=== PATIENT | male | born 1995 | race Caucasian/White ===

== ENCOUNTER 2020-10-18 10:54 | Outpatient (REF) | payer OTHER, SELFPAY ==
[2020-10-18 11:05] LABS: MANUAL DIFF FLAG NO
[2020-10-18 12:07] LABS: Basophils Percent Auto 0.5 % (0-2); Eosinophils Absolute Auto 0.2 X10*3/uL (0.0-0.4); Eosinophils Percent Auto 2.4 % (0-4); Hematocrit 45.1 % (42-52); Hemoglobin 15.1 g/dl (14.0-18.0); Imm Gran Abs Auto 0.04 X10*3/uL (0.00-0.03); Imm Gran Pct Auto 0.5 % (0.0-0.4); Lymphocytes Absolute Auto 2.1 X10*3/uL (1.2-4.9); Lymphocytes Percent Auto 27.2 % (20-40); Mean Corpuscular HGB Conc 33.5 g/dl (31.0-36.0); Mean Corpuscular Hemoglobin 27.6 pg (27.0-33.0); Mean Corpuscular Volume 82.3 fL (80-98); Mean Platelet Volume 10.7 fL (9.4-12.4); Monocytes Absolute Auto 0.5 X10*3/uL (0.1-1.2); Neutrophils Absolute Auto 4.9 X10*3/uL (2.0-8.3); Neutrophils Percent Auto 63.4 % (45-73); Platelet Count 271 X10*3/uL (160-400); Red Blood Count 5.48 X10*6/uL (4.60-5.80); Red Cell Distribution Width 12.7 % (11.0-16.0); White Blood Count 7.8 X10*3/uL (4.8-10.8)
[2020-10-18 12:16] LABS: Alanine Aminotransferase 38 U/L (0-40); Albumin Level 4.7 g/dL (3.5-5.0); Alkaline Phosphatase 92 U/L (39-117); Anion Gap 11 (12-20); Aspartate Amino Transferase 21 U/L (5-37); Bilirubin Total 0.7 mg/dL (0.0-1.0); Blood Urea Nitrogen 13 mg/dL (9-16); Calcium 9.8 mg/dL (8.4-10.2); Carbon Dioxide 29 mmol/L (22-29); Chloride 105 mmol/L (96-108); Cholesterol 163 mg/dL; Estimated Glomerular Filt Rate > 60; Glucose Fasting 104 mg/dL (60-99); HDL Cholesterol 35 mg/dL; LDL Cholesterol Calculated 112 mg/dl; Sodium 141 mmol/L (135-145); Total Protein 7.1 g/dL (6.5-8.0); Triglycerides 84 mg/dL
[2020-10-18 14:16] LABS: Glucose Urine UA NEG (NEG); Leukocyte Esterase Urine NEG (NEG); Nitrite Urine NEG (NEG); PH 5.5 (5.0-8.0); Specific Gravity - Urine >= 1.030 (1.005-1.025); Urine Blood NEG (NEG); Urine Ketones NEG (NEG); Urine Protein NEG (NEG-TRACE)
[2020-10-18 14:19] LABS: Appearance Urine HAZY; Color Urine YELLOW
== END 2020-10-18 10:55 | disposition home or self-care (01) ==
LOC: HO.LNP 10:54
PROVIDERS: Visit Provider Internal Medicine
DX: Z00.00 Encounter for general adult medical examination without abnormal findings (principal); R79.89 Other specified abnormal findings of blood chemistry
CPT/HCPCS: 80053; 80061; 81003; 85025

== ENCOUNTER 2022-01-04 10:53 | Outpatient (REF) | payer BC, SELFPAY ==
[2022-01-04 10:59] LABS: MANUAL DIFF FLAG NO
[2022-01-04 11:18] LABS: Basophils Percent Auto 0.3 % (0-2); Eosinophils Absolute Auto 0.3 X10*3/uL (0.0-0.4); Eosinophils Percent Auto 2.4 % (0-4); Hematocrit 46.9 % (42.0-52.0); Hemoglobin 15.3 g/dl (14.0-18.0); Imm Gran Abs Auto 0.08 X10*3/uL (0.00-0.03); Imm Gran Pct Auto 0.7 % (0.0-0.4); Lymphocytes Absolute Auto 3.8 X10*3/uL (1.2-4.9); Lymphocytes Percent Auto 32.3 % (20-40); Mean Corpuscular HGB Conc 32.6 g/dl (31.0-36.0); Mean Corpuscular Hemoglobin 27.3 pg (27.0-33.0); Mean Corpuscular Volume 83.6 fL (80.0-98.0); Mean Platelet Volume 10.6 fL (9.4-12.4); Monocytes Absolute Auto 0.8 X10*3/uL (0.1-1.2); Monocytes Percent Auto 6.5 % (2-11); Neutrophils Absolute Auto 6.8 x10*3/uL (2.0-8.3); Neutrophils Percent Auto 57.8 % (45-73); Platelet Count 298 X10*3/uL (160-400); Red Blood Count 5.61 X10*6/uL (4.60-5.80); Red Cell Distribution Width 13.4 % (11.0-16.0); White Blood Count 11.8 X10*3/uL (4.8-10.8)
[2022-01-04 11:26] LABS: Alanine Aminotransferase 71 U/L (0-40); Albumin Level 4.5 g/dL (3.5-5.0); Alkaline Phosphatase 89 U/L (39-117); Anion Gap 13 (12-20); Aspartate Amino Transferase 32 U/L (5-37); Bilirubin Total 0.7 mg/dL (0.0-1.0); Blood Urea Nitrogen 14 mg/dL (9-16); Calcium 9.6 mg/dL (8.4-10.2); Carbon Dioxide 27 mmol/L (22-29); Chloride 102 mmol/L (96-108); Cholesterol 170 mg/dL; Estimated Glomerular Filt Rate > 60; Glucose Fasting 95 mg/dL (60-99); HDL Cholesterol 30 mg/dL; LDL Cholesterol Calculated 106 mg/dl; Potassium 4.3 mmol/L (3.3-5.1); Sodium 138 mmol/L (135-145); Total Protein 7.2 g/dL (6.5-8.0); Triglycerides 171 mg/dL
[2022-01-04 11:50] LABS: Appearance Urine HAZY; Color Urine YELLOW; Glucose Urine UA NEG (NEG); Leukocyte Esterase Urine NEG (NEG); Nitrite Urine NEG (NEG); PH 5.5 (5.0-8.0); Specific Gravity - Urine >= 1.030 (1.005-1.025); Urine Blood NEG (NEG); Urine Ketones NEG (NEG); Urine Protein NEG (NEG-TRACE)
== END 2022-01-04 10:54 | disposition home or self-care (01) ==
LOC: HO.LNP 10:53
PROVIDERS: Visit Provider Internal Medicine
DX: Z00.00 Encounter for general adult medical examination without abnormal findings (principal); E78.6 Lipoprotein deficiency; R79.89 Other specified abnormal findings of blood chemistry
CPT/HCPCS: 80053; 80061; 81003; 85025

== ENCOUNTER 2023-02-25 11:15 | Outpatient (REF) | payer BC, SELFPAY ==
[2023-02-25 11:20] LABS: MANUAL DIFF FLAG NO
[2023-02-25 11:46] LABS: Basophils Absolute Auto 0.1 X10*3/uL (0.0-0.2); Basophils Percent Auto 0.6 % (0-2); Eosinophils Absolute Auto 0.3 X10*3/uL (0.0-0.4); Eosinophils Percent Auto 3.3 % (0-4); Hematocrit 44.6 % (42.0-52.0); Imm Gran Abs Auto 0.05 X10*3/uL (0.00-0.03); Imm Gran Pct Auto 0.6 % (0.0-0.4); Lymphocytes Absolute Auto 3.5 X10*3/uL (1.2-4.9); Lymphocytes Percent Auto 39.4 % (20-40); Mean Corpuscular HGB Conc 33.6 g/dl (31.0-36.0); Mean Corpuscular Hemoglobin 28.5 pg (27.0-33.0); Mean Corpuscular Volume 84.8 fL (80.0-98.0); Mean Platelet Volume 10.5 fL (9.4-12.4); Monocytes Absolute Auto 0.5 X10*3/uL (0.1-1.2); Monocytes Percent Auto 5.9 % (2-11); Neutrophils Absolute Auto 4.4 x10*3/uL (2.0-8.3); Neutrophils Percent Auto 50.2 % (45-73); Platelet Count 246 X10*3/uL (160-400); Red Blood Count 5.26 X10*6/uL (4.60-5.80); Red Cell Distribution Width 13.1 % (11.0-16.0); White Blood Count 8.8 X10*3/uL (4.8-10.8)
[2023-02-25 11:51] LABS: Alanine Aminotransferase 94 U/L (0-40); Albumin Level 4.2 g/dL (3.5-5.0); Alkaline Phosphatase 94 U/L (39-117); Anion Gap 11 (12-20); Aspartate Amino Transferase 67 U/L (5-37); Bilirubin Total 0.5 mg/dL (0.0-1.0); Blood Urea Nitrogen 10 mg/dL (9-16); Calcium 9.1 mg/dL (8.4-10.2); Carbon Dioxide 26 mmol/L (22-29); Chloride 106 mmol/L (96-108); Cholesterol 180 mg/dL; Estimated Glomerular Filt Rate > 60; Glucose Fasting 137 mg/dL (60-99); HDL Cholesterol 35 mg/dL; LDL Cholesterol Calculated 109 mg/dl; Potassium 4.1 mmol/L (3.3-5.1); Sodium 139 mmol/L (135-145); Total Protein 6.8 g/dL (6.5-8.0); Triglycerides 184 mg/dL
[2023-02-25 11:52] LABS: Appearance Urine Clear; Color Urine Yellow; Glucose Urine UA Negative (Negative); Leukocyte Esterase Urine Negative (Negative); Nitrite Urine Negative (Negative); PH 6.5 (5.0-9.0); Specific Gravity - Urine 1.025 (1.005-1.025); Urine Blood Negative (Negative); Urine Ketones Negative (Negative); Urine Protein Negative (Neg-Trace)
[2023-02-25 12:04] LABS: Bacteria Urine None Seen (None Seen); Hyaline Casts Urine 0-2 /LPF (0-2); RBC Urine 0-2 /HPF (0-2); Squamous Epithelial Cell Urine 0-2 /HPF (0-2); WBC Urine 0-5 /HPF (0-5)
[2023-02-25 12:16] LABS: PSA,Total (Free>4and<10) 0.29 ng/mL (0.00-4.00)
== END 2023-02-25 11:16 | disposition home or self-care (01) ==
LOC: HO.LNP 11:15
PROVIDERS: Visit Provider Internal Medicine
DX: Z00.00 Encounter for general adult medical examination without abnormal findings (principal); R79.89 Other specified abnormal findings of blood chemistry; E78.6 Lipoprotein deficiency; Z12.5 Encounter for screening for malignant neoplasm of prostate
CPT/HCPCS: 80053; 80061; 81001; 84153; 85025

== ENCOUNTER 2024-09-08 08:00 | Outpatient (REF) | payer BC, SELFPAY ==
[2024-09-08 10:31] LABS: MANUAL DIFF FLAG NO
[2024-09-08 10:46] LABS: Appearance Urine Clear; Color Urine Dark Yellow; Glucose Urine UA Negative (Negative); Leukocyte Esterase Urine Negative (Negative); Nitrite Urine Negative (Negative); PH 6.5 (5.0-9.0); Specific Gravity - Urine >= 1.030 (1.005-1.025); Urine Blood Negative (Negative); Urine Ketones Negative (Negative); Urine Protein Negative (Neg-Trace)
[2024-09-08 10:55] LABS: Basophils Absolute Auto 0.1 X10*3/uL (0.0-0.2); Basophils Percent Auto 0.5 % (0-2); Eosinophils Absolute Auto 0.2 X10*3/uL (0.0-0.4); Eosinophils Percent Auto 1.7 % (0-4); Hematocrit 45.7 % (42.0-52.0); Hemoglobin 15.6 g/dl (14.0-18.0); Imm Gran Abs Auto 0.04 X10*3/uL (0.00-0.03); Imm Gran Pct Auto 0.4 % (0.0-0.4); Lymphocytes Absolute Auto 3.4 X10*3/uL (1.2-4.9); Lymphocytes Percent Auto 30.7 % (20-40); Mean Corpuscular HGB Conc 34.1 g/dl (31.0-36.0); Mean Corpuscular Hemoglobin 28.9 pg (27.0-33.0); Mean Corpuscular Volume 84.8 fL (80.0-98.0); Mean Platelet Volume 10.8 fL (9.4-12.4); Monocytes Absolute Auto 0.8 X10*3/uL (0.1-1.2); Monocytes Percent Auto 7.1 % (2-11); Neutrophils Absolute Auto 6.5 x10*3/uL (2.0-8.3); Neutrophils Percent Auto 59.6 % (45-73); Platelet Count 266 X10*3/uL (160-400); Red Blood Count 5.39 X10*6/uL (4.60-5.80); Red Cell Distribution Width 12.7 % (11.0-16.0)
[2024-09-08 11:13] LABS: Alanine Aminotransferase 83 U/L (0-40); Albumin Level 4.4 g/dL (3.5-5.0); Alkaline Phosphatase 109 U/L (39-117); Anion Gap 22 (12-20); Aspartate Amino Transferase 38 U/L (5-37); Bilirubin Direct < 0.1 mg/dL (0.0-0.5); Bilirubin Total 0.3 mg/dL (0.0-1.0); Blood Urea Nitrogen 10 mg/dL (9-16); Calcium 9.4 mg/dL (8.4-10.2); Carbon Dioxide 22 mmol/L (22-29); Chloride 100 mmol/L (96-108); Cholesterol 192 mg/dL (<200); Estimated Glomerular Filt Rate > 60; Glucose Fasting 145 mg/dL (60-99); HDL Cholesterol 25 mg/dL (>40); Potassium 3.9 mmol/L (3.3-5.1); Sodium 140 mmol/L (135-145); Triglycerides 896 mg/dL (<150)
== END 2024-09-08 08:01 | disposition home or self-care (01) ==
LOC: HO.LNP 08:00
PROVIDERS: Visit Provider Internal Medicine
DX: Z00.00 Encounter for general adult medical examination without abnormal findings (principal); E78.5 Hyperlipidemia, unspecified; R79.89 Other specified abnormal findings of blood chemistry
CPT/HCPCS: 80053; 80061; 80076; 81003; 82248; 85025

== ENCOUNTER 2024-11-09 14:05 | Outpatient (REF) | payer OTHER, SELFPAY ==
--- OUTSIDE RECORDS SUMMARY | 2024-11-09 16:53 | XMS_ITS ---
Author Organization Kristian Park MD Address [address] [place], [place] [id number] Care Team Providers Care Chargemaster Analyst Name Role Phone Kristian Park Primary Care Provider Results Component Value Reference Range Notes Complete Blood Count Auto Di ff Reviewed date:09/08/2024 12:28:25 PM Interpretation: Performing Lab:[facility], [address] [place] [id number] Notes/Report: White Blood Count 11.0 4.8-10.8 X10*3/uL Red Blood Count 5.39 4.60-5.80 X10*6/uL Hemoglobin 15.6 14.0-18.0 g/dl Hematocrit 45.7 42.0-52.0 % Mean Corpuscular Volume 84.8 80.0-98.0 fL Mean Corpuscular Hemoglobin 28.9 27.0-33.0 pg Mean Corpuscular HGB Conc 34.1 31.0-36.0 g/dl Red Cell Distribution Width 12.7 11.0-16.0 % Platelet Count 266 160-400 X10*3/uL Mean Platelet Volume 10.8 9.4-12.4 fL Neutrophils Percent Auto 59.6 45-73 % Imm Gran Pct Auto 0.4 0.0-0.4 % Lymphocytes Percent Auto 30.7 20-40 % Monocytes Percent Auto 7.1 2-11 % Eosinophils Percent Auto 1.7 0-4 % Basophils Percent Auto 0.5 0-2 % NRBC Pct Auto 0.0 0.0-0.2 /100WBC Neutrophils Absolute Auto 6.5 2.0-8.3 x10*3/u L Imm Gran Abs Auto 0.04 0.00-0.03 X10*3/uL Lymphocytes Absolute Auto 3.4 1.2-4.9 X10*3/u L Monocytes Absolute Auto 0.8 0.1-1.2 X10*3/uL Eosinophils Absolute Auto 0.2 0.0-0.4 X10*3/u L Basophils Absolute Auto 0.1 0.0-0.2 X10*3/uL NRBC Abs Auto 0.000 0.0-0.012 X10*3/uL Comprehensive [facility]. Panel Fa st Reviewed date:09/15/2024 04:49:27 PM Interpretation:09-15-24 Performing Lab:[address] [phone] Notes/Report: Sodium 140 135-145 mmol/L Potassium 3.9 3.3-5.1 mmol/L Chloride 100 96-108 mmol/L Carbon Dioxide 22 22-29 mmol/L Anion Gap 22 12-20 Blood Urea Nitrogen 10 9-16 mg/dL Creatinine 0.83 0.5-1.4 mg/dL Estimated Glomerular Filt Rate > 60 Chronic Kidney Disease: Estimated GFR < 60 mL/min/1.73m2 Severe Kidney Disease: Estimated GFR < 15 mL/min/1.73m2 Glucose Fasting 145 60-99 mg/dL A fasting glucose of 126 mg/dl or greater on more than one occasion is considered diagnostic of diabetes. Calcium 9.4 8.4-10.2 mg/dL Bilirubin Total 0.3 0.0-1.0 mg/dL Aspartate Amino Transferase 38 5-37 U/L Alanine Aminotransferase 83 0-40 U/L Total Protein 8.0 6.5-8.0 g/dL Albumin Level 4.4 3.5-5.0 g/dL Alkaline Phosphatase 109 39-117 U/L Liver Panel Reviewed date:09/08/2024 12:28:46 PM Interpretation: Performing Lab:[facility], [address] [place] [place] [phone] Notes/Report: Bilirubin Direct < 0.1 0.0-0.5 mg/dL Lipid Panel Reviewed date:09/08/2024 12:28:37 PM Interpretation: Performing Lab:[facility], [address], [place] [address] Notes/Report: Triglycerides 896 <150 mg/dL Moderate Lipemia. Desirable Triglyceride: less than 150 mg/dL Borderline High Triglyceride 150-199 mg/dL High Triglyceride: 200-499 mg/dL Very High Triglyceride: greater than or equal to 5OO mg/dL Cholesterol 192 <200 mg/dL Desirable Cholesterol: less than 200 mg/dL Borderline High Cholesterol: 200-239 mg/dL High Cholesterol: greater than 239 mg/dL LDL Cholesterol Calculated TNP <100 mg/dL Unable to calculate the LDL. The formula of Friedwald, Hernández, and Gilberto is only valid if the triglycerides are less than 400 mg/dl. HDL Cholesterol 25 >40 mg/dL Desirable HDL: greater than 40 mg/dL Note: This HDL assay may give artificially low results in patients with liver disease. REASON FOR VISIT FASTING LABS Medications Medication SIG (Take, Route, Frequency, Duration) Notes Start Date End Date Status lamoTRIgine 100 MG 1 tablet Orally Once a day for 30 day(s) Active risperiDONE 1 MG 1 tablet Orally Once a day for 30 day(s) Active Escitalopram Oxalate 20 MG 1 tablet Oral ly Once a day for 30 day(s) Active Encounters Encounter Location Date Provider Diagnosis Kristian Park MD [address] [place] [address] [address] [place], [place] [phone] 09/08/2024 Kristian Park Blood tests for routine general physical examination Z00.00 ; Low HDL (under 40) E78.6 and Elevated LFTs R79.89 Assessments Encounter Date Diagnosis (ICD Code) Assessment Notes Treatment Notes Treatment Clinical Notes Section Notes 09/08/2024 Blood tests for routine general physical examination (ICD-10 - Z00.00) 09/08/2024 Low HDL (under 40) (ICD-10 - E78.6) 09/08/2024 Elevated LFTs (ICD-10 - R79.89) Plan Of Treatment Pending Test Test Name Order Date UA ClnCatch+Micro w/rflx Cult 09/08/2024 Next Appt Details Provider Name:Kristian lua, 12/14/2024 03:00:00 PM, [address] [place] [address], [address], [place], [place], [phone], Provider Name:Kristian Mars ier, 09/09/2025 07:45:00 AM, [address], [address], [place], [phone], Provider Name:Kristian Mars ier, 09/16/2025 02:30:00 PM, [address], [address], [place], [phone], Progress Notes * Vinayak PENNINGTON JrDOB:[birth year] (29 yo M)Acc No.[id number]:09/08/2024 Progress Note Patient:?Vinayak PENNINGTON Jr Provider:?Kristian Park MD :1995???Age:29 Y???Sex:Male Keith e:09/08/2024 Address:[address] [place], [place] [phone] Subjective: * Chief Complaints: * ???1. FASTING LABS. * Medical History:? * Medications:?Taking lamoTRIg ine 100 MG Tablet 1 tablet Orally Once a day , Taking risperiDONE 1 MG Tablet 1 tablet Orally Once a day , Taking Escitalopram Oxalate 20 MG Tablet 1 tablet Orally Once a day Objective: * Vitals:? Assessment: * Assessment: 1.?Blood tests for routine g eneral physical examination - Z00.00 (Primary)???2.?Low HDL (under 40) - E78.6???3.?Elevated LFTs - R79.89??? Plan: * Treatment: 2.?Low HDL (under 40)?LAB: UA ClnCatch+Micro w/rflx Cult ?LAB: Complete Blood Count Auto Diff (Collection Date & Time - 09/08/2024 08:00 AM) ?LAB: Comprehensive [facility]. Panel Fast (Collection Date & Time - 09/08/2024 08:00 AM) ?LAB: Liver Panel (Collection Date & Time - 09/08/2024 08:00 AM) ?LAB: Lipid Panel (Collection Date & Time - 09/08/2024 08:00 AM) 3.?Elevated LFTs?LAB: UA ClnCatch+Micro w/rflx Cult ?LAB: Complete Blood Count Auto Diff (Collection Date & Time - 09/08/2024 08:00 AM) ?LAB: Comprehensive [facility]. Panel Fast (Collection Date & Time - 09/08/2024 08:00 AM) ?LAB: Liver Panel (Collection Date & Time - 09/08/2024 08:00 AM) ?LAB: Lipid Panel (Collection Date & Time - 09/08/2024 08:00 AM) * Procedure Codes:?03816 VENIP UNCT, ROUTINE* * * The named appointment provid er may or may not be the originator of this progress note, and it is not deemed complete until electronically signed by the appointment provider. Sign off status: Pending * Provider:?Kristian Park MD Date:?0 09/08/2024 Generated for Cele collins/Hola/Jose Luisitting on:?11/09/2024 04:52 PM EDT
--- OUTSIDE RECORDS SUMMARY | 2024-11-09 16:53 | XMS_ITS ---
Author Organization Kristian Park MD Address [address] [place] [phone] Care Team Providers Care Admin Assistant Name Role Phone Kristian Park Primary Care Provider [phone] Allergies No Known Allergies REASON FOR VISIT STD testing Medications Medication SIG (Take, Route, Frequency, Duration) Notes Start Date End Date Status Escitalopram Oxalate 20 MG 1 tablet Oral ly Once a day for 30 day(s) Active risperiDONE 1 MG 1 tablet Orally Once a day for 30 day(s) Active lamoTRIgine 100 MG 1 tablet Orally Once a day for 30 day(s) Active Prazosin HCl 2 MG 1 capsule at bedtime Orally Once a day Active Vital Signs Blood pressure systolic 112 mm Hg 11/10/19 25 Blood pressure diastolic 74 mm Hg 025 Height 71 in 11/09/2024 Weight 298 lbs 11/09/2024 BMI 41.56 kg/m2 11/09/2024 weight is up 6 pounds since 09-15-24 Encounters Encounter Location Date Provider Diagnosis Kristian Park MD [address] [place] [phone] 11/09/2024 Kristian Park STD exposure Z20.2 and Skin lesion L98.9 Assessments Encounter Date Diagnosis (ICD Code) Assessment Notes Treatment Notes Treatment Clinical Notes Section Notes 11/09/2024 STD exposure (ICD-10 - Z20.2) 11/09/2024 Skin lesion (ICD-10 - L98.9) referral to dermatology/ gave patirnt info to call [facility] for an appt 11/09/2024 Other order given to the patient Plan Of Treatment Treatment Notes Assessment Notes Skin lesion referral to dermatol yesika/ gave patirnt info to call [facility] for an appt Other order given to the p atient Pending Test Test Name Order Date GC CHLAMYDIA PROBETEC 11/09/2024 CT NG by PCR 11/09/2024 Next Appt Details Provider Name:Kristian Mars ier, 12/14/2024 03:00:00 PM, [address] [place] [address], [address], [place], [place], [phone], Provider Name:Kristian Mars ier, 09/09/2025 07:45:00 AM, [address], [address], [place], [place], [phone], Provider Name:Kristian Mars ier, 09/16/2025 02:30:00 PM, [address] [place] [address], [address], [place], [place], [phone], Progress Notes * Vinayak PENNINGTON JrDOB:[birth year] (29 yo M)Acc No.[id number]:11/09/2024 Progress Notes Patient:?Vinayak PENNINGTON Jr Provider:?Kristian Park MD :1995???Age:29 Y???Sex:Male Keith e:11/09/2024 Address:[address] [place] [address] Subjective: * Chief Complaints: * ???1. STD testing. * HPI: ???Symptom(s):?patient is a 29 yo male here to discuss STD testing.girfriend has itching in vaginal area. she wants him to get tested. denies any other sexual partners.,. * ROS:?General/Constitutional:?Denies?Chills.?Denies?Fatigue.?Denies?Fever.?Denies?Headache.?ENT:?Denies?Sore throat.?Respiratory:?Denies?Cough.?Denies?Shortness of breath at rest.?Denies?Shortness of breath with exertion.?Gastrointestinal:?Denies?Diarrhea.?Denies?Nausea.? * Medical History:?Medical His tory Verified. * Medications:?Taking Prazosin HCl 2 MG Capsule 1 capsule at bedtime Orally Once a day , Taking lamoTRIgine 100 MG Tablet 1 tablet Orally Once a day , Taking risperiDONE 1 MG Tablet 1 tablet Orally Once a day , Taking Escitalopram Oxalate 20 MG Tablet 1 tablet Orally Once a day , Medication List reviewed and reconciled with the patient * Allergies:?N.K.D.A. Objective: * Vitals:?Ht: 71, Wt: 298, BMI :41.56, BP:112/74, Wt-k.17. weight is up 6 pounds since 09-15-24. * Examination: ???General Examination: ?GENERAL APPEARANCE:?alert, well hydrated, in no distress.?HEAD:?normocephalic.?SKIN:?abnormal chin with a 1/3 inch lesion.? Assessment: * Assessment: 1.?STD exposure - Z20.2 (Giovanna davina)???2.?Skin lesion - L98.9??? Plan: * Treatment: 2.?Skin lesion? Notes: referral to dermatology/ gave patirnt info to call [facility] for an appt ?? 3.?Others? Notes: order given to the patient?? * * The named appointment provid er may or may not be the originator of this progress note, and it is not deemed complete until electronically signed by the appointment provider. Sign off status: Pending * Provider:?Kristian Park MD Date:?0 11/09/2024 Generated for Cele collins/Hola/Pedro on:?11/09/2024 04:53 PM EDT History and Physical Notes * HPI (History of Present Illness) Category Sub-Category Detail Notes Category Not es Symptom(s) patient is a 29 yo male here to discuss STD testing.girfriend has itching in vaginal area. she wants him to get tested. denies any other sexual partners., Examination Category Sub-Category Detail Notes Category Not es General Examination GENERAL APPEARANCE: alert, w ell hydrated, in no distress HEAD: normocephalic SKIN: abnormal chin with a 1/3 inch lesion
--- OUTSIDE RECORDS SUMMARY | 2024-11-09 16:53 | XMS_ITS ---
Author Organization Kristian Park MD Address [address] [place], [place] [id number] Care Team Providers Care Customer Service Driver Name Role Phone Kristian Park Primary Care Provider [phone] Allergies No Known Allergies REASON FOR VISIT ANNUAL EXAM/ must see comp meta lab Medications Medication SIG (Take, Route, Frequency, Duration) Notes Start Date End Date Status Prazosin HCl 2 MG 1 capsule at bedtime Orally Once a day Active risperiDONE 1 MG 1 tablet Orally Once a day for 30 day(s) Active lamoTRIgine 100 MG 1 tablet Orally Once a day for 30 day(s) Active Escitalopram Oxalate 20 MG 1 tablet Oral ly Once a day for 30 day(s) Active Social History Tobacco Use: Social History Observation Description Date Details (start date - stop date) Never Smoker NA - NA Alcohol Screen Question Answer Notes Did you have a drink contain ing alcohol in the past year? Yes How often did you have a dri nk containing alcohol in the past year? 2 to 4 times a month (2 points) How many drinks did you have on a typical day when you were drinking in the past year? 1 or 2 drinks (0 point) How often did you have 6 or more drinks on one occasion in the past year? Never (0 point) Points 2 Interpretation Negative AUDIT-C (Standard) Question Answer Notes Did you have a drink contain ing alcohol in the past year? Yes How often did you have a dri nk containing alcohol in the past year? Monthly or less (1 point) How many drinks did you have on a typical day when you were drinking in the past year? 1 or 2 drinks (0 point) How often did you have six o r more drinks on one occasion in the past year? Never (0 point) Points 1 Interpretation Negative Tobacco Control (Standard) Question Answer Notes Tobacco use: Nonsmoker Problems Problem Type SNOMED Code ICD Code Onset Dates Problem Status W/U Status Risk Notes Problem 23553416 Type 2 diabetes mellitus without complication, without long-term current use of insulin (E11.9) Active confirmed Problem 705376595 Obesity, morbid, BMI 40.0-49.9 (E66.01) Active confirmed Vital Signs Blood pressure systolic 122 mm Hg 09/15/19 25 Blood pressure diastolic 66 mm Hg 025 Height 71 in 09/15/2024 Weight 292 lbs 09/15/2024 BMI 40.72 kg/m2 09/15/2024 weight is up 10 pounds since 03-04-23 Encounters Encounter Location Date Provider Diagnosis Kristian Park MD [address] [place] [address] [address] [place], [place] [phone] 09/15/2024 Kristian Park Type 2 diabetes mellitus without complication, without long-term current use of insulin E11.9 ; Annual physical exam Z00.00 ; Obesity, morbid, BMI 40.0-49.9 E66.01 ; Dysthymia F34.1 and Depression screening Z13.31 Assessments Encounter Date Diagnosis (ICD Code) Assessment Notes Treatment Notes Treatment Clinical Notes Section Notes 09/15/2024 Type 2 diabetes mellitus without complication, without long-term current use of insulin (ICD-10 - E11.9) we discussed the meds and see if would like to try them 09/15/2024 Annual physical exam (ICD-10 - Z00.00) labs reviewed and discussed with patient 09/15/2024 Obesity, morbid, BMI 40.0-49.9 (ICD-10 - E66.01) needs diet. is starting to exercise 09/15/2024 Dysthymia (ICD-10 - F34.1) stabe, will contoinue current regiment 09/15/2024 Depression screening (ICD-10 - Z13.31) negative screen Plan Of Treatment Treatment Notes Assessment Notes Type 2 diabetes mellitus wit hout complication, without long-term current use of insulin we discussed the meds and see if would like to try them Annual physical exam labs reviewed and d iscussed with patient Obesity, morbid, BMI 40.0-49.9 needs t. is starting to exercise Dysthymia stabe, will contoinu e current regiment Depression screening negative screen Next Appt Details Follow Up: 3 Months, Reason: Provider Name:Kristian lua, 12/14/2024 03:00:00 PM, [address] [place] [address], Suite [facility], [place], [place], [phone], Provider Name:Kristian lua, 09/09/2025 07:45:00 AM, [address] [place] [address], Suite [facility], [place], [place], [phone], Provider Name:Kristian lua, 09/16/2025 02:30:00 PM, [address] [place] [address], [place] [address], [place], [place], [phone], Progress Notes * Vinayak PENNINGTON JrDOB:[birth year] (29 yo M)Acc No.[id number]:09/15/2024 Progress Notes Patient:?Vinayak PENNINGTON Jr Provider:?Kristian Park MD :1995???Age:29 Y???Sex:Male Keith e:09/15/2024 Address:[address] [place] [address] [id number] Subjective: * Chief Complaints: * ???ANNUAL EXAM/ must see com p meta lab * HPI: ???Depression Screening:?PHQ-9?Little interest or pleasure in doing things?Not at all,?Feeling down, depressed, or hopeless?Not at all,?Trouble falling or staying asleep, or sleeping too much?Not at all,?Feeling tired or having little energy?Not at all,?Poor appetite or overeating?Not at all,?Feeling bad about yourself or that you are a failure, or have let yourself or your family down?Not at all,?Trouble concentrating on things, such as reading the newspaper or watching television?Not at all,?Moving or speaking so slowly that other people could have noticed; or the opposite, being so fidgety or restless that you have been moving around a lot more than usual?Not at all,?Thoughts that you would be better off or of hurting yourself in some way?Not at all,?Total Score?0.?Interpretation and Intervention?Depression Screening Findings?Negative,?Follow-Up for Depression?: review of PHQ-9 found negative result, no follow-up needed.?Communication Needs:?Communication Needs?Does the patient have a hearing impairment?No,?Does the patient have a vision impairment??Yes,?If yes, what is the vision impairment??Glasses,?Does the patient have a cognition impairment??No.?SDOH Questions:?SDOH Questions?In the past year have you been worried about losing housing??No,?In the past year have you or any family members you live with been unable to get any of the following when it was really needed? Check all that apply:?None.? * ROS:?General/Constitutional:?Change in appetite?denies.?Chills?denies.?Fever?denies.?Ophthalmologic:?Blurred vision?denies.?Discharge?denies.?Pain?denies.?ENT:?Patient denies?decreased sense of smell, any loss of taste, sore throat.?Decreased hearing?denies.?Sore throat?denies.?Swollen glands?denies.?Endocrine:?Cold intolerance?denies.?Excessive thirst?denies.?Heat intolerance?denies.?Weight loss?denies.?Respiratory:?Cough?denies.?Shortness of breath at rest?denies.?Shortness of breath with exertion?denies.?Wheezing?denies.?Cardiovascular:?Chest pain at rest?denies.?Chest pain with exertion?denies.?Irregular heartbeat?denies.?Shortness of breath?denies.?Gastrointestinal:?Abdominal pain?denies.?Change in bowel habits?denies.?Diarrhea?denies.?Nausea?denies.?Rectal bleeding?denies.?Vomiting?denies .?Genitourinary:?Blood in urine?denies.?Difficulty urinating?denies.?Frequent urination?denies.?Musculoskeletal:?Patient denies?muscle aches.?Painful joints?denies.?Weakness?denies.?Peripheral Vascular:?Patient denies?red and blue toes.?Skin:?Dry skin?denies.?Itching?denies.?Denies?Mole(s),? changes in moles, new moles or any lesions of concern.?Denies?Photosensitivity.?Rash?denies.?Neurologic:?Dizziness?denies.?Fainting?denies.?Headache?denies.? * Medical History:? * Surgical History:? * Hospitalization/Major Diagno stic Procedure:? * Family History:?Father: rowan rodriguez 62 yrs.?Mother: alive 56 yrs.?1 brother(s) - healthy. .? Denies mental health/substance abuse family history, Denies mental health/substance abuse family history, No pertinent family medical history. * Social History:?Tobacco Use:?Tobacco Control (Standard)?Tobacco use:?Nonsmoker.?Drugs/Alcohol:?Alcohol Screen?Did you have a drink containing alcohol in the past year??Yes,?How often did you have a drink containing alcohol in the past year??2 to 4 times a month (2 points),?How many drinks did you have on a typical day when you were drinking in the past year??1 or 2 drinks (0 point),?How often did you have 6 or more drinks on one occasion in the past year??Never (0 point),?Points?2,?Interpretation?Negative.?Miscellaneous:?Caffeine: no. Children: no. Community involvements: no. Exercise: yes, weight and cardio three times a week. Home smoke detector use: yes. Housing: living with relatives. Marital status: single. Occupation: weeks/months/years, unemployed. Pets: 1 dog. Travel outside of the [place]: no. ???Drug/Alcohol:?AUDIT-C (Standard)?Did you have a drink containing alcohol in the past year??Yes,?How often did you have a drink containing alcohol in the past year??Monthly or less (1 point),?How many drinks did you have on a typical day when you were drinking in the past year??1 or 2 drinks (0 point),?How often did you have six or more drinks on one occasion in the past year??Never (0 point),?Points?1,?Interpretation?Negative.? * Medications:?TakingPrazosin HCl 2 MG Capsule 1 capsule at bedtime Orally Once a day lamoTRIgine 100 MG Tablet 1 tablet Orally Once a day risperiDONE 1 MG Tablet 1 tablet Orally Once a day Escitalopram Oxalate 20 MG Tablet 1 tablet Orally Once a day Medication List reviewed and reconciled with the patientTaking Prazosin HCl 2 MG Capsule 1 capsule at bedtime Orally Once a day Taking lamoTRIgine 100 MG Tablet 1 tablet Orally Once a day Taking risperiDONE 1 MG Tablet 1 tablet Orally Once a day Taking Escitalopram Oxalate 20 MG Tablet 1 tablet Orally Once a day Medication List reviewed and reconciled with the patient * Allergies:?N.K.D.A.yes[Aller gies Verified] Objective: * Vitals:?Ht: 71, Wt: 292, BMI :40.72, BP:122/66, Wt-k.45. weight is up 10 pounds since 03-04-23. * ???Past Orders: ???Lab:UA CC w/rflx Micro + Cult (Order Date - 09/08/2024) (Collection Date & Time - 09/08/2024 08:00 AM) ? Value Reference Range ?Color Urine Dark Yellow - ?Appearance Urine Clear - ?PH 6.5 5.0-9.0 - ?Glucose Urine UA Negative Neg ative - mg/dL ?Urine Blood Negative Negative - ?Specific [place] - Urine >= 1.030 H 1.005-1.025 - ?Urine Protein Negative Neg-Tr kamran - mg/dL ?Urine Ketones Negative Negati ve - mg/dL ?Nitrite Urine Negative Negati ve - ?Leukocyte Esterase Urine Negative Negative - ???Lab:Complete Blood Count Auto Diff (Order Date - 09/08/2024) (Collection Date & Time - 09/08/2024 08:00 AM) ? Value Reference Range ?White Blood Count 11.0 H 4. 8-10.8 - X10*3/uL ?Red Blood Count 5.39 4.60 -5.80 - X10*6/uL ?Hemoglobin 15.6 14.0-18.0 - g/dl ?Hematocrit 45.7 42.0-52.0 - % ?Mean Corpuscular Volume 84.8 80.0-98.0 - fL ?Mean Corpuscular Hemoglobin 28.9 27.0-33.0 - pg ?Mean Corpuscular HGB Conc 34.1 31.0-36.0 - g/dl ?Red Cell Distribution Width 12.7 11.0-16.0 - % ?Platelet Count 266 160-4 00 - X10*3/uL ?Mean Platelet Volume 10.8 9.4-12.4 - fL ?Neutrophils Percent Auto 59.6 45-73 - % ?Imm Gran Pct Auto 0.4 0. 0-0.4 - % ?Lymphocytes Percent Auto 30.7 20-40 - % ?Monocytes Percent Auto 7.1 2-11 - % ?Eosinophils Percent Auto 1.7 0-4 - % ?Basophils Percent Auto 0.5 0-2 - % ?NRBC Pct Auto 0.0 0.0-0. 2 - /100WBC ?Neutrophils Absolute Auto 6.5 2.0-8.3 - x10*3/uL ?Imm Gran Abs Auto 0.04 H 0. 00-0.03 - X10*3/uL ?Lymphocytes Absolute Auto 3.4 1.2-4.9 - X10*3/uL ?Monocytes Absolute Auto 0.8 0.1-1.2 - X10*3/uL ?Eosinophils Absolute Auto 0.2 0.0-0.4 - X10*3/uL ?Basophils Absolute Auto 0.1 0.0-0.2 - X10*3/uL ?NRBC Abs Auto 0.000 0.0-0. 012 - X10*3/uL ???Lab:Liver Panel (Order [facility] 09/08/2024) (Collection Date & Time - 09/08/2024 08:00 AM) ? Value Reference Range ?Bilirubin Direct < 0.1 0.0 -0.5 - mg/dL ???Lab:Lipid Panel (Order [facility] 09/08/2024) (Collection Date & Time - 09/08/2024 08:00 AM) ? Value Reference Range ?Triglycerides 896 H <150 - mg/dL ?Cholesterol 192 <200 - m g/dL ?LDL Cholesterol Calculated TNP <100 - mg/dL ?HDL Cholesterol 25 L >40 - mg/dL * Examination: ???General Examination: ?GENERAL APPEARANCE:?well developed, well nourished, in no acute distress.?HEAD:?normocephalic, atraumatic.?EYES:?pupils equal, round, reactive to light and accommodation, sclera non-icteric.?EARS:?normal.?ORAL CAVITY:?mucosa moist.?THROAT:?clear.?NECK/THYROID:?neck supple, full range of motion, no cervical lymphadenopathy, no bruits.?SKIN:?warm and dry, no suspicious lesions.?HEART:?regular rate and rhythm, S1, S2 normal, no murmurs.?LUNGS:?clear to auscultation bilaterally.?ABDOMEN:?soft, nontender, nondistended, bowel sounds present, normal, no organomegaly , no masses palpable.?MALE GENITOURINARY:?not examined.?EXTREMITIES:?no clubbing, cyanosis, or edema.?NEUROLOGIC:?nonfocal, motor strength normal upper and lower extremities, sensory exam intact.? Assessment: * Assessment: 1.?Annual physical exam - Z0 0.00 (Primary)???2.?Type 2 diabetes mellitus without complication, without long-term current use of insulin - E11.9???3.?Obesity, morbid, BMI 40.0-49.9 - E66.01???4.?Dysthymia - F34.1???5. Depression screening - Z13.31??? Plan: * Treatment: 2.?Type 2 diabetes mellitus without complication, without long-term current use of insulin? Notes: we discussed the meds and see if would like to try them?? 3.?Obesity, morbid, BMI 40.0 -49.9? Notes: needs diet. is starting to exercise?? 4.?Dysthymia? Notes: stabe, will contoinue current regiment?? 5.?Depression screening? Notes: negative screen?? * Procedure Codes:? * Follow Up:?3 Months * * Sign off status: Completed true * Provider:?Kristian Park MD Date:?0 09/15/2024 Generated for Cele karina/Hola/eTransmitting on:?11/09/2024 04:53 PM EDT History and Physical Notes * HPI (History of Present Illness) Category Sub-Category Detail Notes Category Not es Depression Screening PHQ-9 Little inte rest or pleasure in doing things: Not at all Feeling down, depressed, or hopeless: No t at all Trouble falling or staying asleep, or sl eeping too much: Not at all Feeling tired or having little energy: N ot at all Poor appetite or overeating: Not at all Feeling bad about yourself o r that you are a failure, or have let yourself or your family down: Not at all Trouble concentrating on thi ngs, such as reading the newspaper or watching television: Not at all Moving or speaking so slowly that other people could have noticed; or the opposite, being so fidgety or restless that you have been moving around a lot more than usual: Not at all Thoughts that you would be b amarilis off or of hurting yourself in some way: Not at all Total Score: 0 Interpretation and Intervention Depression Guzman frye Findings: Negative Follow-Up for Depression: : review of PH Q-9 found negative result, no follow-up needed SDOH Questions SDOH Questions In the past year have you been worried about losing housing?: No In the past year have you or any family members you live with been unable to get any of the following when it was really needed? Check all that apply:: None Communication Needs Communication Needs Does the patient have a hearing impairment: No Does the patient have a vision impairmen t?: Yes ?If yes, what is the vision impairment?: Glasses Does the patient have a cognition impair ment?: No Examination Category Sub-Category Detail Notes Category Not es General Examination GENERAL APPEARANCE: well dev eloped, well nourished, in no acute distress HEAD: normocephalic, atrau matic EYES: pupils equal, round, reactive to light and accommodation, sclera non- icteric EARS: normal THROAT: clear NECK/THYROID: neck supple, full ra nge of motion, no cervical lymphadenopathy, no bruits HEART: regular rate and rhy thm, S1, S2 normal, no murmurs LUNGS: clear to auscultatio n bilaterally ABDOMEN: soft, nontender, non distended, bowel sounds present, normal, no organomegaly , no masses palpable NEUROLOGIC: nonfocal, motor stre ngth normal upper and lower extremities, sensory exam intact SKIN: warm and dry, no lola picious lesions EXTREMITIES: no clubbing, cyanosi s, or edema MALE GENITOURINARY: not examined RECTAL EXAM: ORAL CAVITY: mucosa moist
--- OUTSIDE RECORDS SUMMARY | 2024-11-09 16:53 | XMS_ITS | Patient Health Record ---
Author Organization Kristian Park MD Address [address] [place], [place] [id number] Care Team Providers Care Director Volunteer Services Name Role Phone Kristian Park Primary Care Provider Allergies No Known Allergies Results Component Value Reference Range Notes UA CC w/rflx Micro + Cult Reviewed date:09/08/2024 12:21:46 PM Interpretation: Performing Lab:[facility], [address] [place] [phone] Notes/Report: [id number] Urine, Clean Catch Color Urine Dark Yellow Appearance Urine Clear PH 6.5 5.0-9.0 Glucose Urine UA Negative Negative mg/dL Urine Blood Negative Negative Specific [place] - Urine >= 1.030 1.005-1.025 Urine Protein Negative Neg-Trace mg/dL Urine Ketones Negative Negative mg/dL Nitrite Urine Negative Negative Leukocyte Esterase Urine Negative Negative Complete Blood Count Auto Di ff Reviewed date:09/08/2024 12:28:25 PM Interpretation: Performing Lab:[address] [phone] Notes/Report: White Blood Count 11.0 4.8-10.8 X10*3/uL [...] NRBC Abs Auto 0.000 0.0-0.012 X10*3/uL Comprehensive [place]. Panel Fa st Reviewed date:09/15/2024 04:49:27 PM Interpretation:09-15-24 Performing Lab:[facility], [address] [place] [phone] Notes/Report: Sodium 140 135-145 mmol/L Potassium 3.9 [...] Panel Reviewed date:09/08/2024 12:28:46 PM Interpretation: Performing Lab:[facility], [address] [place] [phone] Notes/Report: Bilirubin Direct < 0.1 0.0-0.5 mg/dL Lipid Panel Reviewed date:09/08/2024 12:28:37 PM Interpretation: Performing Lab:[facility], [address] [place] [phone] Notes/Report: Triglycerides 896 <150 mg/dL Moderate Lipemia. [...] low results in patients with liver disease. Reason For Referral No Information Medications Medication SIG (Take, Route, Frequency, Duration) [...] at bedtime Orally Once a day Active Immunizations Vaccine Route Administration Date Status Comme nts Fluarix Quadrivalent IM Intramuscular 07/09/2017 Administe red Fluarix Quadrivalent IM Intramuscular 08/18/2019 Administe red Covid Vaccine Unknown 12/07/2020 Administered Oseas Farooq Social History Tobacco Use: Social History Observation Description Date Details (start date - stop date) Never Smoker NA - NA AUDIT-C (Standard) Question Answer Notes Did you [...] Problem Status W/U Status Risk Notes Problem 71743275 Anxiety (F41.9) Active confirmed Problem Tobacco user (581127936) Nicotine dependence, cigarettes, uncomplicated (F17.210) Active confirmed Problem 956326150 Body mass index (BMI) 38.0-38.9, adult (Z68.38) Active confirmed Problem 3453482 Gynecomastia (N62) Active confirmed Problem 783306489 Elevated LFTs (R79.89) Active confirmed Problem 815180282 Low HDL (under 40) (E78.6) Active confirmed Problem 12978936 Dysthymia (F34.1) Active confirmed Problem 654444282 BMI 35.0-35.9,adult (Z68.35) Active confirmed Problem 24259678 Type 2 diabetes mellitus without complication, without long-term current use of insulin (E11.9) Active confirmed Problem 202093248 Obesity, morbid, BMI 40.0-49.9 (E66.01) Active confirmed Problem 591062971 Non morbid obesity (E66.9) Active confirmed Problem 7136024 Chronic gastriti s without bleeding, unspecified gastritis type (K29.50) Active confirmed Vital Signs Blood pressure diastolic 74 mm Hg 11/09/2024 rod ght is up 6 pounds since 09-15-24 Height 71 in 11/09/2024 weight is up 6 pounds since 09-15-24 Blood pressure systolic 112 mm Hg 11/09/2024 weig ht is up 6 pounds since 09-15-24 Weight 298 lbs 11/09/2024 weight is up 6 pounds since 09-15-24 BMI 41.56 kg/m2 11/09/2024 weight is up 6 pounds since 09-15-24 Encounters Encounter Location Date Provider Diagnosis Kristian Park MD [address] [place] [address] Drive [address] [place] [phone] 09/15/2024 Kristian Park Type 2 diabetes mellitus without complication, without long-term current use of insulin E11.9 ; Annual physical exam Z00.00 ; Obesity, morbid, BMI 40.0-49.9 E66.01 ; Dysthymia F34.1 and Depression screening Z13.31 Kristian Park MD [address] [place] [address] Drive [address] [place] [phone] 09/08/2024 Kristian Park Blood tests for routine general physical examination Z00.00 ; Low HDL (under 40) E78.6 and Elevated LFTs R79.89 Kristian Park MD [address] [place] [address] Drive [address] [place] [phone] 11/09/2024 Kristian Park STD exposure Z20.2 and [...] Z00.00) labs reviewed and discussed with patient 09/08/2024 Blood tests for routine general physical examination (ICD-10 - Z00.00) 11/09/2024 STD exposure (ICD-10 - Z20.2) 11/09/2024 Skin lesion (ICD-10 - L98.9) referral to dermatology/ gave patirnt info to call [facility] for an appt 09/15/2024 Obesity, morbid, BMI 40.0-49.9 (ICD-10 - E66.01) needs diet. is starting to exercise 09/08/2024 Low HDL (under 40) (ICD-10 - E78.6) 09/15/2024 Dysthymia (ICD-10 - F34.1) stabe, will contoinue current regiment 09/08/2024 Elevated LFTs (ICD-10 - R79.89) 09/15/2024 Depression screening (ICD-10 - Z13.31) negative screen 11/09/2024 Other order given to the patient Plan Of Treatment Pending Test Test Name Order Date GC CHLAMYDIA PROBETEC 11/09/2024 XR GI SERIES 03/02/2021 CT NG by PCR 11/09/2024 UA ClnCatch+Micro w/rflx Cult 09/08/2024 Next Appt Details Provider Name:Kristian lua, 12/14/2024 03:00:00 PM, [address] [place] [address], [address], [place], [place], [phone], Provider Name:Kristian Mars ier, 09/09/2025 07:45:00 AM, [address] [place] [address], [address], [place], [place], [phone], Provider Name:Kristian lua, 09/16/2025 02:30:00 PM, [address] [place] [address], [address], [place], [place], [phone], Insurance Providers Payer Name Payer Address Payer Phone Subscriber Number Group Number Insured Name Patient Relationship to Insured Coverage Start Date Coverage End Date [facility] [id number] [place] [phone] [id number] Vinayak Pennington Self - patient is the insured
[2024-11-09 17:26] LABS: CT PCR NOT DETECTED (Not Detect.); NG PCR NOT DETECTED (Not Detect.)
== END 2024-11-09 14:06 | disposition home or self-care (01) ==
LOC: HO.LAB 14:05
PROVIDERS: PCP Internal Medicine; Visit Provider Internal Medicine
DX: Z20.2 Contact with and (suspected) exposure to infections with a predominantly sexual mode of transmission (principal)
CPT/HCPCS: 87491; 87591